=== PATIENT | female | born 1945 | race Caucasian/White ===

== ENCOUNTER 2016-12-02 08:49 | Outpatient (CLI) ==
[2015-07-05 11:34] VITALS: BMI 26.0
[2016-12-02 09:29] LABS: CREATININE 0.75 mg/dL (0.60-1.30)
--- NOTE | 2016-12-02 11:32 | CT ---
EXAM: CT THORAX HISTORY: Abnormal previous imaging result . Pulmonary nodules. TECHNIQUE: CT thorax with intravenous contrast. 5-mm axial sections. Coronal and sagittal re-forma tions. 75 ml Omnipaque COMPARISON: 10/04/2015 CT thorax FINDINGS: Heart size is within normal limits. No pericardial effusion. Mild atheromatous disease. There is a large conglomerate calcification in the subcarinal space consistent with old granulomatous disease . Within the left upper lobe, there is a 0.52 cm slightly spiculated noncalcified nodule. This does n ot appear changed since previous exam. There is a calcified similar sized nodule posteriorly within the left lower lobe consistent with a benign granuloma. Lungs are otherwise grossly within normal limits. The bones reveal no acute abnormality. Surgical clips in the left axilla. IMPRESSION: There is a stable 0.52 cm slightly spiculated noncalcified left upper lobe nodule when compared to 10/04/2015. Given other evidence of old granulomatous disease, this may represent a no ncalcified granuloma. A malignant nature is not completely excluded although would be less likely g iven relative stability. Another follow-up CT in 6 months may be beneficial especially the patient has an increased risk for metastatic or primary neoplasia.
== END 2016-12-02 08:50 | disposition home or self-care (01) ==
LOC: RAD 08:49
PROVIDERS: ATTEND Family Medicine
DX: R93.8 Abnormal findings on diagnostic imaging of other specified body structures (principal)
CPT/HCPCS: 36415; 82565

== ENCOUNTER 2017-08-18 08:50 | Outpatient (CLI) ==
[2015-07-05 11:34] VITALS: BMI 26.0
--- NOTE | 2017-08-18 11:11 | CT ---
EXAM: CT chest with contrast. HISTORY: Abnormal chest radiograph. Pulmonary nodule. Chronic cough. COMPARISON: 12/02/2016, 10/04/2015. TECHNIQUE: Multiple axial images of the chest were obtained following intravenous administration of 75 mL of Omnipaque 350, low osmolar. Images were reformatted in the sagittal and coronal planes. FINDINGS: Bilateral mastectomy changes noted. No mediastinal, hilar, or axillary lymphadenopathy id entified. Calcified mediastinal and hilar lymph nodes are present. Heart size is normal. No perica rdial effusion identified. A 0.5 cm left upper lobe perihilar nodule on axial image 26 is stable as is an adjacent smaller nodul e on axial image 25. The lungs otherwise clear save for calcified granulomatous changes. No pleural effusion or pneumothorax detected. Tiny low density posterior right hepatic lobe lesion on axial image 52 is stable since 08/18/[address] Degenerative changes present in the spine. Old left rib fractures noted. IMPRESSION: Stable left upper lobe nodule since 10/04/2015 which is most likely benign given greater than 22-liz h stability.
== END 2017-08-18 08:51 | disposition home or self-care (01) ==
LOC: RAD 08:50
PROVIDERS: ATTEND Family Medicine
DX: R93.8 Abnormal findings on diagnostic imaging of other specified body structures (principal)

== ENCOUNTER 2017-08-28 09:51 | Outpatient (CLI) | payer OTHER ==
[2015-07-05 11:34] VITALS: BMI 26.0
--- NOTE | 2017-08-28 10:34 | DI ---
EXAM: Right wrist three views HISTORY: Pain COMPARISON: None. FINDINGS: There is no acute fracture or dislocation. Osteoarthritic degenerative changes are noted about the first carpometacarpal and trapezioscaphoid joints. There is no soft tissue swelling. IMPRESSION: No acute findings. Osteoarthritic degenerative changes as described.
== END 2017-08-28 09:52 | disposition home or self-care (01) ==
LOC: RAD 09:51
PROVIDERS: ATTEND Family Medicine
DX: M25.531 Pain in right wrist (principal); W19.XXXA Unspecified fall, initial encounter